=== PATIENT | female | born 1975 | race Caucasian/White ===

== ENCOUNTER 2017-01-31 10:29 | Emergency (ER) | payer BC ==
[2017-01-31 10:59] VITALS: BP 127/69
--- NOTE | 2017-01-31 11:56 | UC ---
Throat Pain/Nasal Iker HPI - HPI Summary HPI Summary: ONE WEEK OF SINUS PRESSURE, CONGESTION, COUGH - History of Current Complaint Chief Complaint: UCRespiratory Stated Complaint: COUGH HEAD CONGESTION Time Seen by Provider: 01/31/17 10:59 Hx Obtained From: Patient Hx Last Menstrual Period: hyster Onset/Duration: Gradual Onset, Lasting Days Severity: Moderate Pain Intensity: 0 Pain Scale Used: 0-10 Numeric Cough: Nonproductive Associated Signs & Symptoms: Positive: Hoarseness, Sinus Discomfort, Nasal Discharge - Epiglottits Risk Factors Epiglottis Risk Factors: Negative - Allergies/Home Medications Allergies/Adverse Reactions: Allergies Allergy/AdvReac Type Severity Reaction Status Date / Time No Known Allergies Allergy Verified 01/31/17 10:56 PMH/Surg Hx/FS Hx/Imm Hx Previously Healthy: Yes - Surgical History Surgical History: Yes Surgery Procedure, Year, and Place: hysterectomy and bladder repair-06/2012- [place]. TUBAL LIGATION-02/2009. SCREW PUT IN LEFT FOOT 05/2012. crainiotomy 07/2015. C1/C2 sx 07/2015. dvt right arm - Family History Known Family History: Negative: Respiratory Disease - Social History Occupation: Employed Full-time Lives: With Family Alcohol Use: None Substance Use Type: None Smoking Status (MU): Former Smoker Type: Cigarettes Amount Used/How Often: 1/2 ppd Have You Smoked in the Last Year: No When Did the Patient Quit Smoking/Using Tobacco: 2007 Cessation Counseling: Patient Advised to Stop - Immunization History Most Recent Influenza Vaccination: NONE Most Recent Tetanus Shot: unknown Most Recent Pneumonia Vaccination: NONE Review of Systems Constitutional: Fever Skin: Negative Eyes: Negative ENT: Sore Throat, Ear Ache, Sinus Congestion Respiratory: Cough Cardiovascular: Negative Gastrointestinal: Negative Genitourinary: Negative Motor: Negative Neurovascular: Negative Musculoskeletal: Negative Neurological: Negative Psychological: Negative Is Patient Immunocompromised?: No All Other Systems Reviewed And Are Negative: Yes Physical Exam Triage Information Reviewed: Yes Appearance: Well-Appearing, No Pain Distress, Well-Nourished Vital Signs: Initial Vital Signs Temp 100 F 01/31/17 10:57 Pulse 87 01/31/17 10:57 Resp 17 01/31/17 10:57 BP 127/69 01/31/17 10:57 Pulse Ox 98 01/31/17 10:57 Vital Signs Reviewed: Yes Eye Exam: Normal ENT: Positive: Pharynx normal, Nasal drainage, TM bulging, TM dull Dental Exam: Normal Neck exam: Normal Neck: Positive: Supple, Nontender Respiratory Exam: Other - COUGH Respiratory: Positive: Chest non-tender, Lungs clear, Normal breath sounds, No respiratory distress, No accessory muscle use Cardiovascular Exam: Normal Cardiovascular: Positive: RRR, No Murmur, Pulses Normal Abdominal Exam: Normal Abdomen Description: Positive: Nontender, No Organomegaly Musculoskeletal Exam: Normal Neurological Exam: Normal Psychological Exam: Normal Skin Exam: Normal Throat Pain/Nasal Course/Dx - Differential Dx/Diagnosis Differential Diagnosis/HQI/PQRI: Sinusitis, Tonsillitis, URI Provider Diagnoses: SINUSITIS; BRONCHITIS Discharge - Discharge Plan Condition: Stable Disposition: HOME Prescriptions: Amoxicillin/Clavulanate TAB* [Augmentin TAB 875*] 875 mg PO BID #20 tab Benzonatate CAP* [Tessalon 100 MG CAP*] 100 mg PO TID PRN #15 cap PRN Reason: Cough Patient Education Materials: Sinusitis (ED), Acute Bronchitis (ED) Forms: *Work Release Referrals: Rebekah Singh NP [Primary Care Provider] -
== END 2017-01-31 11:15 | disposition home or self-care (01) ==
LOC: UCEAST 10:29
DX: J32.9 Chronic sinusitis, unspecified (principal); J40 Bronchitis, not specified as acute or chronic
CPT/HCPCS: 99212; G0463

== ENCOUNTER → 2017-02-04 17:27 | Emergency (ER) | payer BC ==
[2017-02-04 18:53] VITALS: BP 128/97
--- NOTE | 2017-02-04 19:14 | UC ---
Respiratory Complaint HPI - HPI Summary HPI Summary: 41 year old female with cough and sinus pressure. COUGH FOR ALMOST TWO WEEKS. SEEN AT [facility] , TREATED WITH AUGMENTIN AND TESSALON PERLES. COUGH IS WORSE. ANTERIOR RIBS HURT (FROM COUGHING). NO FEVER. DOES FEEL SOB AT TIMES. Seen 4 days ago at [place]. No CP. [ End ] - History of Current Complaint Chief Complaint: UCRespiratory Stated Complaint: COLD SYMPTOMS Time Seen by Provider: 02/04/17 19:09 Hx Obtained From: Patient Hx Last Menstrual Period: hyster Onset/Duration: Gradual Onset Timing: Constant Severity Initially: Moderate Severity Currently: Moderate Character: Cough: Productive - Allergies/Home Medications Allergies/Adverse Reactions: Allergies Allergy/AdvReac Type Severity Reaction Status Date / Time No Known Allergies Allergy Verified 02/04/17 18:42 PMH/Surg Hx/FS Hx/Imm Hx Previously Healthy: Yes - Surgical History Surgical History: Yes Surgery Procedure, Year, and Place: hysterectomy and bladder repair-06/2012- [place]. TUBAL LIGATION-02/2009. SCREW PUT IN LEFT FOOT 05/2012. crainiotomy 07/2015. C1/C2 sx 07/2015. dvt right arm - Family History Known Family History: Negative: Respiratory Disease - Social History Lives: With Family Alcohol Use: None Substance Use Type: None Smoking Status (MU): Former Smoker Type: Cigarettes Amount Used/How Often: 1/2 ppd Have You Smoked in the Last Year: No When Did the Patient Quit Smoking/Using Tobacco: 2007 - Immunization History Most Recent Influenza Vaccination: NOT IN 2016 Most Recent Tetanus Shot: unknown Most Recent Pneumonia Vaccination: NONE Review of Systems Constitutional: Fatigue ENT: Nasal Discharge, Sinus Congestion, Sinus Pain/Tenderness Respiratory: Cough Is Patient Immunocompromised?: No All Other Systems Reviewed And Are Negative: Yes Physical Exam Triage Information Reviewed: Yes Appearance: Well-Appearing, No Pain Distress, Well-Nourished Vital Signs: Initial Vital Signs Temp 98 F 02/04/17 18:43 Pulse 75 02/04/17 18:43 Resp 20 02/04/17 18:43 BP 128/97 02/04/17 18:43 Pulse Ox 99 02/04/17 18:43 Vital Signs Reviewed: Yes Eye Exam: Normal ENT Exam: Normal Dental Exam: Normal Neck exam: Normal Neck: Positive: 1 Respiratory Exam: Normal Respiratory: Positive: Chest non-tender, Decreased breath sounds - RLL, Rhonchi - RLL> LLL, Wheezing Cardiovascular Exam: Normal Musculoskeletal Exam: Normal Neurological Exam: Normal Psychological Exam: Normal Skin Exam: Normal UC Diagnostic Evaluation - Laboratory O2 Sat by Pulse Oximetry: 99 - Radiology Xray Interpretation: Positive (See Comments) - IMPRESSION: Mild alveolar consolidation at the RIGHT lung base suspicious for pneumonia Radiology Interpretation Completed By: Radiologist Respiratory Course/Dx - Course Course Of Treatment: Reference #: [id number] - Differential Dx/Diagnosis Differential Diagnosis/HQI/PQRI: Bronchitis, Lower Resp Infection, Sinusitis Provider Diagnoses: pneumonia Discharge - Discharge Plan Condition: Good Disposition: HOME Prescriptions: Doxycycline Hyclate [Morgidox [id number]] 100 mg PO BID #20 cap Guaifenesin-Codeine [Cheratussin AC] 5 ml PO Q6H PRN #60 ml MDD 20ml PRN Reason: cough Patient Education Materials: Pneumonia (ED) Referrals: Rebekah Snigh NP [Primary Care Provider] - 4 Days Additional Instructions: You have been prescribed an additional antibiotic for your pneumonia and a cough suppressant with codeine. Feel better soon.
--- NOTE | 2017-02-04 19:52 | RAD ---
INDICATION: Cough, shortness of breath, LEFT lower lobe rhonchi. COMPARISON: October 20, 2005 TECHNIQUE: Dual energy PA and routine lateral views of the chest were obtained. REPORT: Mild alveolar consolidation at the RIGHT lung base most conspicuous on the PA view. Negative for pleural effusion or pneumothorax. The heart, pulmonary vasculature, and mediastinal contours are unremarkable. Healed RIGHT clavicle fracture. IMPRESSION: Mild alveolar consolidation at the RIGHT lung base suspicious for pneumonia given absence of volume loss to favor atelectasis.
== END | disposition home or self-care (01) ==
LOC: UCCORT 17:27
DX: J18.9 Pneumonia, unspecified organism (principal); R51 Headache
CPT/HCPCS: 71020; 99212; G0463

== ENCOUNTER 2018-03-11 19:28 | Emergency (ER) | payer SELFPAY ==
[2018-03-11 19:59] VITALS: BP 118/70
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
== END 2018-03-11 20:40 | disposition home or self-care (01) ==
LOC: UCEAST 19:28
DX: S16.1XXA Strain of muscle, fascia and tendon at neck level, initial encounter (principal); V43.52XA Car driver injured in collision with other type car in traffic accident, initial encounter; Y92.410 Unspecified street and highway as the place of occurrence of the external cause
CPT/HCPCS: 99211; G0463

== ENCOUNTER 2018-04-06 17:03 | Emergency (ER) | payer OTHER ==
--- OUTSIDE RECORDS SUMMARY | 2018-04-06 17:09 | XMS REPORT ---
:1975 Author Organization [facility] Address [address] [place] [address] Care Team Providers Name Role Phone Pastora Guerra Unavailable Unavailable PROBLEMS Type Condition ICD9-CM Code ZZC03-HC Code Onset Condition SNOMED Code Dates Status Problem Other specified N94.89 Active 787742721 conditions associated with female genital organs and menstrual cycle Problem Dyspareunia not F52.6 Active 13899956 due to a substance or known physiological condition Problem Other specified N93.8 Active 450014295 abnormal uterine and vaginal bleeding ALLERGIES No Information ENCOUNTERS Encounter Location Date Diagnosis [facility] [address] Dec, OBG[place], [place] [id number] [facility] 103 Dec, [place] [id number] [facility] 103 Dec, Other specified [facility] associated with female [place], [place] [id number] genital organs and menstrual cycle N94.89 [facility] 103 Dec, Dyspareunia not due to a [facility] substance or known [place], [place] [id number] physiological condition F52.6 and Other specified abnormal uterine and vaginal bleeding N93.8 [facility] 103 Nov, [facility] [place], [place] [id number] (routine) without abnormal findings Z01.419 ; PELVIC PAIN 625.9 ; Family history of malignant neoplasm of digestive organs Z80.0 and Family history of malignant neoplasm of other genital organs Z80.49 [facility] 103 Mar, [place]BGYN [place] [id number] [facility] 103 Jan, [place] [id number] [address] Aug, FEM STRESS INCONTINENCE OBGYN Road [address] [place] [address].6 ; Menometrorrhagia [place] [id number] 626.2 ; FM HX GENITAL MALIG NOS V16.40 and Prolapse 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 618.9 [facility] 103 July, FEM STRESS INCONTINENCE OBN [place] [address] ; Menometrorrhagia [place], [place] [id number] 626.2 ; FM HX GENITAL MALIG NOS V16.40 and Prolapse 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 618.9 [facility] [address] [place], Jun, [facility] [id number] [facility] 103 Jun, FEM STRESS INCONTINENCE [place] [address].6 ; Menometrorrhagia [place] [id number] 626.2 ; FM HX GENITAL MALIG NOS V16.40 and Prolapse 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 618.9 [facility] 103 May, [place] [id number] [address] May, FEM STRESS INCONTINENCE OBGYN Road [address] [place] [address].6 ; Menometrorrhagia [place] [id number] 626.2 ; Body Mass Index 40.0-44.9, adult V85.41 ; FM HX GENITAL MALIG NOS V16.40 and Prolapse 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 618.9 [facility] 103 May, [place]BG[place] [id number] [facility] 103 May, FEM STRESS INCONTINENCE OBGYN [address] 625.6 ; Menometrorrhagia [place], [place] [id number] 626.2 ; Body Mass Index 40.0-44.9, adult V85.41 ; FM HX GENITAL MALIG NOS V16.40 and Prolapse 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 618.9 [facility] 103 May, [facility] 625.6 [place] [id number] [facility] 103 Apr, [place] [id number] [place] [facility] [address] [place] [address] Apr, 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 [facility] [address] [place], V72.31 ; Prolapse of female [place] [id number] genital organs NOS 618.9 ; URINARY INCONTINENCE NOS 788.30 and Menometrorrhagia 626.2 [place] [facility] 103 Apr, Bleeding unrelated to [facility] menstrual cycle 626.6 ; [place], [place] [id number] Prolapse 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 618.9 ; FAMILY HX-GI MALIGNANCY V16.0 ; FM HX GENITAL MALIG NOS V16.40 and Incontinence 788.30 [facility] 103 Mar, Bleeding unrelated to [facility] menstrual cycle 626.6 [place] [id number] [place] [facility] 103 Mar, Bleeding unrelated to [facility] menstrual cycle 626.6 [place], [place] [id number] [place] [facility] 103 Mar, Menometrorrhagia 626.2 [place] [id number] [place] [facility] 103 Mar, [place] [id number] [place] [facility] [address] [place] [address] Mar, Bleeding unrelated to [facility] Road [address] [place], menstrual cycle 626.6 ; [place] [id number] Prolapse 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 618.9 ; FAMILY HX-GI MALIGNANCY V16.0 and FM HX GENITAL MALIG NOS V16.40 [place] [facility] 103 Jun, Menorrhagia 626.2 ; OBGYN [facility] Prolapse of female genital [place], [place] [id number] organs NOS 618.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 [place] [facility] 103 Jun, O[place] [id number] [place] [facility] 103 Apr, [place] [id number] [facility] 103 Apr, Bleeding unrelated to OBGYN [facility] menstrual cycle 626.6 ; [place], [place] [id number] FAMILY HX-GI MALIGNANCY V16.0 and FM HX GENITAL MALIG NOS V16.40 [facility] 103 Feb, [place]BG[place] [id number] [facility] 103 Feb, [place] [id number] [facility] 103 Feb, Bleeding unrelated to OBGYN [facility] menstrual cycle 626.6 ; [place], [place] [id number] FAMILY HX-GI MALIGNANCY V16.0 and FM HX GENITAL MALIG NOS V16.40 [facility] 103 Feb, Bleeding unrelated to OBGYN [facility] menstrual cycle 626.6 [place] [id number] [facility] 103 Feb, Bleeding unrelated to OBGYN [facility] menstrual cycle 626.6 [place], [place] [id number] [place] [facility] 103 Feb, Bleeding unrelated to OBGYN [facility] menstrual cycle 626.6 [place], [place] [id number] [facility] 103 Jan, [place] [id number] [address] Jan, Bleeding unrelated to OBGYN [address] [place], menstrual cycle 626.6 [place] [id number] [place] [facility] [address] [place] [address] Feb, 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 Dec, Prolapse of female genital OBGYN [address] [place], organs NOS 618.9 and [place] [id number] URINARY INCONTINENCE NOS 788.30 [facility] 103 Nov, OBG[place] [id number] [address] Nov, Prolapse of female genital OBGYN [address] [place], organs NOS 618.9 and [place] [id number] URINARY INCONTINENCE NOS 788.30 IMMUNIZATIONS No Known Immunizations SOCIAL HISTORY Never Assessed REASON FOR REFERRAL FUNCTIONAL STATUS PLAN OF CARE VITAL SIGNS MEDICATIONS Unknown Medications PROCEDURES No Known procedures RESULTS No Results REASON FOR VISIT NO RESPONSE FROM PATIENT Insurance Providers [facility]ly [facility] Member Patient Patient Patient Patient Patient Subscriber Subscriber Subscriber Group Insurance Plan Plan Plan Plan ID Relationship Address Phone Name Date of ID Name Date of No Type Insurance Insurance Insurance Coverage to Subscriber Address Phone Name Dates [phone] [place] self [place] [id number] [place] [address] Care [facility] [address] [employer] [address] [employer] self [place] [id number] Blue [address] 89 Blue [place] 502 66 Cross/Blue [place] Cross/Blue Shield [id number] Shield MEDICAL (GENERAL) HISTORY Type Description Date Medical History H/o asthma Medical History OAB Medical History Colitis Medical History Colaris Negative (FH uterine/colon cancers) Medical History Blood clot- right arm , d/t PIC line Medical History arnold chiari 2 Medical History Bipolar Surgical History BTL 2008 Surgical History TLH/BS/USS/TOT 07/19/12 Surgical History arnold chiari- decompression surgery, PIC line place 2016 right Surgical History Right arm PIC line replaced Surgical History Left foot repair- Screw placed 2014 Hospitalization History childbirth Hospitalization History arnold chiari decompression
[2018-04-06 17:15] VITALS: BP 141/79
--- NOTE | 2018-04-06 17:46 | UC ---
Lower Extremity/Ankle HPI - History of Current Complaint Chief Complaint: UCLowerExtremity Stated Complaint: LEG PAIN Time Seen by Provider: 04/06/18 17:28 Hx Obtained From: Patient Hx Last Menstrual Period: hyster ?: No Onset/Duration: Sudden Onset Severity Initially: Moderate Severity Currently: Moderate Pain Intensity: 1 - Risk Factors DVT Risk Factors: Prior DVT - in arm from PICC line - Allergies/Home Medications Allergies/Adverse Reactions: Allergies Allergy/AdvReac Type Severity Reaction Status Date / Time No Known Allergies Allergy Verified 04/06/18 17:15 PMH/Surg Hx/FS Hx/Imm Hx Previously Healthy: Yes - hx. of dvt in arm from PICC line, hx. arnold chiari malformation - Surgical History Surgical History: Yes Surgery Procedure, Year, and Place: hysterectomy and bladder repair-06/2012- [place]. TUBAL LIGATION-02/2009. SCREW PUT IN LEFT FOOT 05/2012. crainiotomy 07/2015. C1/C2 sx 07/2015. dvt right arm - Family History Known Family History: Negative: Respiratory Disease - Social History Alcohol Use: Occasionally Substance Use Type: None Smoking Status (MU): Former Smoker Type: Cigarettes Amount Used/How Often: 1/2 ppd Have You Smoked in the Last Year: No When Did the Patient Quit Smoking/Using Tobacco: 2007 - Immunization History Most Recent Influenza Vaccination: NOT IN 2016 Most Recent Tetanus Shot: unknown Most Recent Pneumonia Vaccination: NONE Review of Systems All Other Systems Reviewed And Are Negative: Yes Is Patient Immunocompromised?: No Physical Exam Triage Information Reviewed: Yes Appearance: Well-Appearing Vital Signs: Initial Vital Signs Temp 36.5 C 04/06/18 17:08 Pulse 67 04/06/18 17:08 Resp 18 04/06/18 17:08 BP 141/79 04/06/18 17:08 Pulse Ox 99 04/06/18 17:08 Vital Signs Reviewed: Yes Eye Exam: Normal Eyes: Positive: Conjunctiva Clear ENT Exam: Normal ENT: Positive: Normal ENT inspection Musculoskeletal Exam: Other - large ecchymosis posterior right popliteal area, no cord, no erythema seen Lower Extremity Course/Dx - Differential Dx/Diagnosis Provider Diagnosis: Ecchymosis Discharge - Sign-Out/Discharge Documenting (check all that apply): Patient Departure All imaging exams completed and their final reports reviewed: Yes - Discharge Plan Condition: Good Disposition: HOME Patient Education Materials: Ecchymosis (ED) Referrals: Rebekah Singh NP [Primary Care Provider] - Additional Instructions: needs US lower extremity, but no urgency given appearance and hx of dvt related to PICC line. - Billing Disposition and Condition Condition: GOOD Disposition: Home
== END 2018-04-06 17:55 | disposition home or self-care (01) ==
LOC: UCEAST 17:03
DX: R23.3 Spontaneous ecchymoses (principal); Z86.718 Personal history of other venous thrombosis and embolism; Q07.00 Arnold-Chiari syndrome without spina bifida or hydrocephalus; Z87.891 Personal history of nicotine dependence
CPT/HCPCS: 99212; G0463

== ENCOUNTER 2018-04-06 18:21 | Emergency (ER) | payer SELFPAY ==
--- NOTE | 2018-04-06 19:31 | ED ---
Lower Extremity - HPI Summary HPI Summary: A 42 y/o female presents to the ED c/o raised area behind right knee/calf reaching 2/10 in severity. As per triage, "sent by ayush. had large raised area behind right knee/calf, bruising, painful, warm to touch. history of blood clots, varicose veins". According to the patient, she has a big lump in the back of her right knee/calf. She stated that she didn't injure the area or had any trauma recently, but she stated that she just happened to feel the lump when she touched her leg as it had been aching. She stated that Ayush referred her to the ED and doesn't like the idea of her traveling because they are worried about a possible blood clot. She denies any CP and SOB. Patient stated that it is just a somewhat painful raised area. She stated that on Wednesday , it was raised as thick as her thumb, but yesterday it is similar in size and shape as today. She has no other complaints at this time. Patient stated that it does not feel like a blood clot she had in her arm from a PICC line from surgery. - History of Current Complaint Chief Complaint: EDExtremityLower Stated Complaint: RT LEG PAIN AND SWOLLEN Time Seen by Provider: 04/06/18 19:15 Hx Obtained From: Patient Hx Last Menstrual Period: hyster Mechanism Of Injury: Unknown Onset of Pain: Days Onset/Duration: Still Present Severity Initially: Mild Severity Currently: Mild Pain Intensity: 2 Pain Scale Used: 0-10 Numeric Timing: Constant Location: Is Discrete @ - BEHIND RIGHT KNEE/CALF Character Of Pain: Aching Associated Signs And Symptoms: Positive: Negative Aggravating Factor(s): Nothing Alleviating Factor(s): Nothing Able to Bear Weight: Yes - Allergies/Home Medications Allergies/Adverse Reactions: Allergies Allergy/AdvReac Type Severity Reaction Status Date / Time No Known Allergies Allergy Verified 04/06/18 18:33 PMH/Surg Hx/FS Hx/Imm Hx Endocrine/Hematology History: Denies: Hx Diabetes, Hx Thyroid Disease Cardiovascular History: Denies: Hx Hypertension, Hx Pacemaker/ICD Respiratory History: Reports: Hx Pneumonia - 2010 Denies: Hx Asthma - NO PROBLEMS SINCE QUIT SMOKING, Hx Chronic Bronchitis, Hx Chronic Obstructive Pulmonary Disease (COPD), Hx Cystic Fibrosis, Hx Lung Cancer, Hx Pleural Effusion, Hx Pulmonary Edema, Hx Pulmonary Embolism, Hx Seasonal Allergies, Hx Sleep Apnea, Other Respiratory Problems/Disorders GI History: Denies: Hx Ulcer History: Reports: Other Problems/Disorders - bladder repair Denies: Hx Renal Disease Musculoskeletal History: Reports: Other Musculoskeletal History - CHIARI MALFORMATION, screw left foot Denies: Hx Arthritis, Hx Back Problems, Hx Bursitis, Hx Congenital Bone Abnormalities, Hx Fibromyalgia, Hx Gout, Hx Orthopedic Injury, Hx Osteoporosis, Hx Scoliosis, Hx Tendonitis Sensory History: Denies: Hx Contacts or Glasses, Hx Hearing Aid Opthamlomology History: Denies: Hx Contacts or Glasses Neurological History: Reports: Hx Headaches - resolved, Other Neuro Impairments/ Disorders - CHIARI MALFORMATION Denies: Hx Dementia, Hx Developmental Delay, Hx Migraine, Hx Nerve Disease, Hx Seizures, Hx Spinal Cord Injury, Hx Transient Ischemic Attacks (TIA) Psychiatric History: Reports: Hx Anxiety, Hx Depression, Hx Bipolar Disorder Denies: Hx Attention Deficit Hyperactivity Disorder, Hx Eating Disorder, Hx Panic Disorder, Hx Post Traumatic Stress Disorder, Hx Inpatient Treatment, Hx Community Mental Health Tx, Hx Schizophrenia, Hx Suicide Attempt, Hx of Violent Episodes Against Others, Hx Substance Abuse, Other Psychiatric Issues/Disorders - Surgical History Surgery Procedure, Year, and Place: hysterectomy and bladder repair-06/2012- [place]. TUBAL LIGATION-02/2009. SCREW PUT IN LEFT FOOT 05/2012. crainiotomy 07/2015. C1/C2 sx 07/2015. dvt right arm Hx Anesthesia Reactions: No Infectious Disease History: No Infectious Disease History: Denies: Hx Clostridium Difficile, Hx Hepatitis, Hx Human Immunodeficiency Virus (HIV), Hx of Known/Suspected MRSA, Hx Shingles, Hx Tuberculosis, Hx Known/ Suspected VRE, Hx Known/Suspected VRSA, History Other Infectious Disease, Traveled Outside the [place] in Last 30 Days - Family History Known Family History: Negative: Respiratory Disease - Social History Alcohol Use: Occasionally Substance Use Type: Reports: None Smoking Status (MU): Former Smoker Type: Cigarettes Amount Used/How Often: 1/2 ppd Have You Smoked in the Last Year: No Review of Systems Negative: Fever Negative: Chest Pain Negative: Shortness Of Breath Positive: Other - POSITIVE: BACK OF RIGHT KNEE/CALF PAIN All Other Systems Reviewed And Are Negative: Yes Physical Exam - Summary Physical Exam Summary: Appearance: Well-appearing, Well-nourished, lying in bed comfortable Skin: Warm, dry, no obvious rash. Oval area of ecchymosis with induration with no discrete fluctuance, length is consistent with area and is normal. Eyes: sclera anicteric, no conjunctival pallor ENT: mucous membranes moist Neck: deferred Respiratory: No signs of respiratory distress Cardiovascular: Appears well perfused, pulses are nml Abdomen: deferred Musculoskeletal: Moving all 4 extremities without obvious discomfort. Mild calf tenderness. Neurological: Awake and alert, mentation is normal, speech is fluent and appropriate Psychiatric: affect is normal, does not appear anxious or depressed Triage Information Reviewed: Yes Vital Signs On Initial Exam: Initial Vitals Temp Pulse Resp BP Pulse Ox 97.6 F 69 16 140/81 99 04/06/18 18:30 04/06/18 18:30 04/06/18 18:30 04/06/18 18:30 04/06/18 18:30 Vital Signs Reviewed: Yes Diagnostics - Vital Signs Vital Signs Temp Pulse Resp BP Pulse Ox 04/06/18 18:30 97.6 F 69 16 140/81 99 - Laboratory Lab Statement: Any lab studies that have been ordered have been reviewed, and results considered in the medical decision making process. - Ultrasound No standard instances Ultrasound Interpretation Completed By: Radiologist Summary of Ultrasound Findings: VENOUS DOPPLER STUDY: No deep venous thrombosis. ED PHYSICIAN REVIEWED THIS RADIOLOGY REPORT. Lower Extremity Course/Dx - Course Course Of Treatment: A 42 y/o female presents to the ED c/o raised area behind right knee/calf reaching 2/10 in severity. According to the patient, she has a big lump in the back of her right knee/calf. She stated that she didn't injure the area or had any trauma recently, but she stated that she just happened to feel the lump when she touched her leg as it had been aching. She stated that Ayush referred her to the ED and doesn't like the idea of her traveling because they are worried about a possible blood clot. She denies any CP and SOB. Patient stated that it is just a somewhat painful raised area. She stated that on Wednesday, it was raised as thick as her thumb, but yesterday it is similar in size and shape as today. She has no other complaints at this time. Physical examination finding significant for oval area of ecchymosis with induration with no discrete fluctuance, length is consistent with area and is normal, mild calf tenderness. A Venous Doppler Study revealed no deep venous thrombosis. No laboratory screens were done. In the ED course, the patient received no medications. Patient will be discharged with a diagnosis hematoma. Patient is to follow up with primary care provider in 5 days. Patient is to return to ED for any new or worsening symptoms. Patient is agreeable with this plan. - Diagnoses Provider Diagnoses: Hematoma Discharge - Sign-Out/Discharge Documenting (check all that apply): Patient Departure - DISCHARGE - Discharge Plan Condition: Good Disposition: HOME Patient Education Materials: Hematoma (ED) Referrals: Rebekah Singh NP [Primary Care Provider] - 5 Days (if not improving) Additional Instructions: FOLLOW UP WITH PRIMARY CARE PROVIDER IN 5 DAYS. RETURN TO ED FOR ANY NEW OR WORSENING SYMPTOMS. - Attestation Statements Document Initiated by Arthur: Yes Documenting Scribe: Rohan Hernandez Provider For Whom Mayraibe is Documenting (Include Credential): Marky Olsen MD Scribe Attestation: Rohan Shearer, scribed for Marky Olsen MD on 04/06/18 at 2102. Status of Scribe Document: Ready
[2018-04-06 21:26] VITALS: BP 137/82
== END 2018-04-06 21:25 | disposition home or self-care (01) ==
LOC: ED 18:21
DX: S80.11XA Contusion of right lower leg, initial encounter (principal); M25.561 Pain in right knee; M54.9 Dorsalgia, unspecified; Z87.891 Personal history of nicotine dependence; X58.XXXA Exposure to other specified factors, initial encounter; Y92.9 Unspecified place or not applicable
CPT/HCPCS: 99282

== ENCOUNTER → 2018-09-09 08:35 | Day surgery (SDC) | payer BC, OTHER ==
[~2018-09-09 08:35] MED LIST: Buffered Lidocaine 1% SYRIN* 1 ML/SYRINGE INTRADERM ONE; Dexamethasone IV* 4 MG/ML 1 ML (4 MG) ONE; Famotidine IV* 10 MG/ML 2 ML (20 mg) IV ONE; Famotidine IV* 10 MG/ML 2 ML (20 mg) ONE; Lactated Ringers 1000 ML Bag* 1,000 ML IV SCH; Lidocaine 2% PF * 5 ML VIAL ONE; Midazolam* 1 MG/ML 2 ML VIAL (2 MG) ONE; Midazolam* 1 MG/ML 5 ML VIAL (5 MG) ONE; Naloxone* 0.4 MG/ML 1 ML VIAL IV PRN; Ondansetron INJ* 2 MG/ML VIAL IV PRN; Ondansetron INJ* 2 MG/ML VIAL ONE; Propofol* 10 MG/ML 20 ML BTL ONE; fentaNYL* 50 MCG/ML 2 ML VIAL (100 MCG VIAL) IV PRN; fentaNYL* 50 MCG/ML 2 ML VIAL (100 MCG VIAL) ONE
[2018-09-09 11:50] VITALS: BP 110/61
--- NOTE | 2018-09-09 19:35 | PRO ---
CC: Rebekah Singh NP * COLONOSCOPY REPORT: DATE OF PROCEDURE: 09/09/18 - [facility] PRIMARY NURSE PRACTITIONER: Rebekah Singh NP INDICATION FOR PROCEDURE: Rectal bleeding. PROCEDURE PERFORMED: Complete colonoscopy to the terminal ileum with hot snare polypectomy, Endoclip placement, Spot tattoo injection, biopsy polypectomy. MEDICATIONS GIVEN: Please see Anesthesia record. DESCRIPTION OF PROCEDURE: After the colonoscopy procedure including the risks, benefits, and alternatives with the risks not limited to perforation, surgery, missed lesions, and/or were explained to the patient, written informed consent was obtained, IV medication was given, and a rectal exam was performed. The rectal exam was unremarkable. The adult Olympus colonoscope was then inserted into the patient's rectum and advanced very carefully through the entirety of the colon and into the cecal base. Cecal base was carefully inspected and normal in appearance. The preparation was good. A photograph was taken of the cecal cap. The terminal ileal valve was identified, intubated x5 to 6 cm and normal in appearance. The scope was then returned to the cecum. Over the next 20 minutes, the scope was carefully withdrawn inspecting the mucosa. A small polyp was removed in the ascending colon with biopsy polypectomy in entirety. Random biopsies were taken to rule out microscopic colitis given symptomatology. At 42 cm, a large 2 cm pedunculated polyp with ulceration was encountered. This was removed with hot snare polypectomy in entirety. An Endoclip was placed over the stalk to prevent bleeding. In addition, the area was tattooed with Spot ink for further identification. No other polyps or lesions were identified. On return to the rectum, direct views were normal. On retroflexion, the views were normal as well. The scope was then removed from the patient. She tolerated the procedure well. She returned to the recovery room in stable condition. IMPRESSION: 1. Complete colonoscopy to the terminal ileum with hot snare polypectomy, Endoclip placement, biopsy polypectomy, and Spot tattoo injection submucosal. 2. Very large polyp at 42 cm, removed with hot snare polypectomy and Endoclip placed over stalk. Area was tattooed for identification in the future. 3. Biopsy polypectomy, ascending colon polyp. 4. Biopsies taken to rule out microscopic colitis. 5. Good prep. RECOMMENDATIONS: Await results of biopsies. Given this large polyp, awaiting results of biopsies, but will definitely need a colonoscopy in 1 year's time. Irregardless, if there is evidence of adenocarcinoma, we will plan on a CT of the chest, abdomen and pelvis and oncology evaluation. [id number]/[facility] #: [id number] [facility]
== END | disposition home or self-care (01) ==
LOC: OR 08:35
PROVIDERS: ATTEND Internal Medicine Gastroenterology
DX: K62.5 Hemorrhage of anus and rectum (principal); K63.5 Polyp of colon; R10.30 Lower abdominal pain, unspecified; R19.7 Diarrhea, unspecified; Z87.891 Personal history of nicotine dependence; F31.9 Bipolar disorder, unspecified
CPT/HCPCS: 88305; J1100; J2250; J2405; J2704; J3010

== ENCOUNTER 2019-04-19 17:29 | Emergency (ER) | payer BC ==
[2019-04-19 17:38] VITALS: BP 138/81
[2019-04-19 18:35] LABS: Influenza A Molecular POSITIVE (Negative)
--- NOTE | 2019-04-19 19:00 | UC ---
FLU HPI - HPI Summary HPI Summary: ONSET YESTERDAY OF COUGH, CONGESTION, BODY ACHES, SORE THROAT, FATIGUE AND CHILLS. NO FEVER. NO NAUSEA/VOMITING. - History of Current Complaint Chief Complaint: UCRespiratory Stated Complaint: FLU LIKE SYMPTOMS Time Seen by Provider: 04/19/19 18:19 Hx Obtained From: Patient Hx Last Menstrual Period: hystere Onset/Duration: Gradual Onset, Lasting Days, Still Present Severity Currently: Moderate Severity Initially: Moderate Pain Intensity: 6 Pain Scale Used: 0-10 Numeric Associated Signs & Symptoms: Positive: Myalgia, Cough, Sore Throat, Nasal Congestion, Headache - Allergy/Home Medications Allergies/Adverse Reactions: Allergies Allergy/AdvReac Type Severity Reaction Status Date / Time No Known Allergies Allergy Verified 04/19/19 17:38 Home Medications: Home Medications Ascorbic Acid TAB* [Vitamin C TAB*] 1,000 mg PO DAILY 04/19/19 [History Confirmed 04/19/19] Ibuprofen TAB* [Advil TAB*] 400 mg PO ONCE PRN 04/19/19 [History Confirmed 04/19] PMH/Surg Hx/FS Hx/Imm Hx Other GI/ History: COLITIS Psychological History: Depression, Bipolar Disorder - Surgical History Surgical History: Yes Surgery Procedure, Year, and Place: hysterectomy and bladder repair-06/2012- [place]. TUBAL LIGATION-02/2009. SCREW PUT IN LEFT FOOT 05/2012. 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 C1/C2 sx 07/2015 - Family History Known Family History: Negative: Respiratory Disease - Social History Alcohol Use: Occasionally Substance Use Type: None Smoking Status (MU): Former Smoker Type: Cigarettes Amount Used/How Often: 1/2 ppd Have You Smoked in the Last Year: No When Did the Patient Quit Smoking/Using Tobacco: 2007 - Immunization History Most Recent Influenza Vaccination: NOT IN 2017 Most Recent Tetanus Shot: unknown Most Recent Pneumonia Vaccination: NONE Review of Systems All Other Systems Reviewed And Are Negative: Yes Constitutional: Positive: Chills, Fatigue ENT: Positive: Sore Throat, Nasal Discharge Respiratory: Positive: Cough Cardiovascular: Positive: Negative Gastrointestinal: Positive: Negative Musculoskeletal: Positive: Myalgia Neurological: Positive: Headache Physical Exam Triage Information Reviewed: Yes Appearance: No Pain Distress, Well-Nourished, Ill-Appearing - FATIGUED Vital Signs: Initial Vital Signs Temp 98.4 F 01/29/20 17:34 Pulse 83 04/19/19 17:34 Resp 18 04/19/19 17:34 BP 138/81 04/19/19 17:34 Pulse Ox 100 04/19/19 17:34 Laboratory Tests 04/19/19 18:30 Influenza A (Rapid) Positive A Vital Signs Reviewed: Yes Eyes: Positive: Conjunctiva Clear ENT: Positive: Hearing grossly normal, Pharynx normal, TMs normal Neck: Positive: Supple, Nontender, No Lymphadenopathy Respiratory Exam: Normal Cardiovascular Exam: Normal Abdomen Description: Positive: Soft Musculoskeletal: Positive: No Edema Neurological: Positive: Alert Psychological: Positive: Age Appropriate Behavior Skin: Negative: Rashes Flu Course/Dx - Course Course Of Treatment: TAMIFLU TWICE DAILY FOR 5 DAYS. REST, HYDRATE, OTC MEDS NEEDED. FOLLOW-UP IF NOT IMPROVING EXPECTED. - Differential Dx/Diagnosis Provider Diagnosis: Influenza A Discharge ED - Sign-Out/Discharge Documenting (check all that apply): Patient Departure All imaging exams completed and their final reports reviewed: No Studies - Discharge Plan Condition: Stable Disposition: HOME Prescriptions: Oseltamivir CAP* [Tamiflu CAP*] 75 mg PO BID #10 cap Patient Education Materials: Influenza (ED) Forms: *Work Release Referrals: Rebekah Singh NP [Primary Care Provider] - If Needed Additional Instructions: SWAB POSITIVE FOR INFLUENZA A. TAMIFLU TWICE DAILY FOR 5 DAYS. OTC MEDS NEEDED FOR FEVER, BODY ACHES. STAY WELL HYDRATED AND RESTED. SEEK FOLLOW-UP IF YOU ARE NOT IMPROVING EXPECTED. - Billing Disposition and Condition Condition: STABLE Disposition: Home
== END 2019-04-19 18:50 | disposition home or self-care (01) ==
LOC: UCEAST 17:29
DX: J10.1 Influenza due to other identified influenza virus with other respiratory manifestations (principal); F31.9 Bipolar disorder, unspecified; Z87.891 Personal history of nicotine dependence
CPT/HCPCS: 99212; G0463